=== PATIENT | male | born 1980 | race Hispanic/Latino ===

== ENCOUNTER 2018-01-15 20:15 | Emergency (ER) | payer SELFPAY ==
[2018-01-15] MEDS ORDERED: Adacel (T-DAP) 0.5 ML VIAL ONE (20:54)
[2018-01-15] MEDS ORDERED: Ibuprofen 200 MG TAB ONE (21:04)
[2018-01-15] MEDS ORDERED: Bacitracin Zinc 1 Packet ONE (21:15)
== END 2018-01-15 21:30 | disposition home or self-care (01) ==
LOC: ERS 20:15
DX: S61.301A Unspecified open wound of left index finger with damage to nail, initial encounter (principal); W26.0XXA Contact with knife, initial encounter
CPT/HCPCS: 90471; 90715